=== PATIENT | female | born 1990 | race Caucasian/White ===

== ENCOUNTER 2025-07-24 09:36 | Outpatient (AMB) | payer OTHER, SELFPAY ==
[2025-07-24 09:56] VITALS: BP 133/84; PULSE 81; RESP 18; TEMP 36.2; O2SAT 98; BMI 25.4
--- NOTE | 2025-07-24 09:59 | AMB.GYNCLNOT ---
Vital Signs 07/24/25 09:56 07/24/25 10:00 Height 1.63 m Height Method Stated Weight 67.358 kg Weight Measurement Method Standing Scale BMI 25.4 BP 133/84 H 133/84 H Blood Pressure Source Automatic Cuff Blood Pressure Location Left Upper Arm Position Sitting Respiration 18 18 Pulse 81 81 Pulse Source Monitor Temp 97.2 F 97.2 F Temp Source Oral Pulse Oximetry (%) 98 98 Oxygen Delivery Method Room Air Allergies/Home Meds Allergies & Medications Allergies No Known Allergies Allergy (Verified 07/24/25 09:57) Medication Reconciliation No Known Home Medications 07/24/25 [History Confirmed 07/24/25] Intake Visit Data Collection New Patient or Established: New Patient (never been to [facility]) Reason for Visit:: [employer] REFERRAL Seen by Clinical Staff ONLY (RN/MA): No Anesthesiologists' Assistant Required: No Do You Feel Safe at Home: Yes Authorities Contacted: N/A PCP or OBGYN visit in last 3 months: Yes Hx Now: No Are you currently on any form of Control: Yes (DEPO PROVERA/ TUBAL LIGATION ) Last menstrual period: 07/22/25 Pain Present Currently: No Pain Scale Used: Solano-Clancy/Numerical Pain scale:: 0 Smoking Status Smoking Status: Never smoker Immunizations Flu Vaccine in the Last 12 Months: No Flu Vaccine Exclusion Criteria: No 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 1. Little interest or pleasure in doing things: not at all 2. Feeling down, depressed, or hopeless: not at all Total score: 0 PHQ-9 3. Trouble falling or staying asleep, or sleeping too much: Not at all 4. Feeling tired or having little energy: Not at all 5. Poor appetite or overeating: Not at all 6. Feeling bad about yourself - or that you are a failure or have let yourself or your family down: Not at all 7. Trouble concentrating on things, such as reading the newspaper or watching television: Not at all 8. Moving or speaking so slowly that other people could have noticed? - Or the opposite - being so fidgety or restless that you have been moving around a lot more than usual: not at all 9. Thoughts that you would be better off or of hurting yourself in some way: Not at all Total score: 0 If you checked off any problems, how difficult have these problems made it for you to do your work, take care of things at home, or get along with other people?: not difficult at all Source: Developed by Drs. Everett Pugh, Savannah Pickens, Jd Mendez and colleagues, with an educational concha from [employer]. Depression screen completed yes Social History Living Situation History Marital Status: Lives With: Family Housing: House Tobacco History Smoking Status: Never smoker Second Hand Smoke Exposure: No Alcohol History Alcohol Intake: Never Domestic Abuse History Do You Feel Safe at Home: Yes History of Present Illness HPI Narrative Irregular menses, pelvic pain, and fibroids Maria Teresa Anna is a 35-year-old female with a history of thyroid issues who presents with irregular menses, pelvic pain, and fibroids, referred from [facility]. The patient reports severe, constant pelvic pain accompanied by hip pain and backaches, particularly during her menstrual periods. Her symptoms began approximately two years ago but have significantly worsened over the past six months. During menstruation, she experiences heavy vaginal bleeding requiring about 4 pads per day. She also reports hot flushes and sweating. Associated symptoms include tiredness, insomnia, poor appetite, bloating, and acid reflux. These symptoms have impacted her overall functioning and quality of life. She has a known history of thyroid issues but is not currently on medication for this condition. The patient has undergone repeated ultrasounds as part of her evaluation for these ongoing symptoms. Medical History: - Thyroid issues (not currently on medication) Diagnostic Test Results and Labs: - Pelvic ultrasound (04-01-2025): Heterogeneous echogenicity uterus measuring 9.9 x 4.3 x 6.3 cm, hypoechoic fibroid 2.3 cm, isoechoic fibroid 2.3 cm, endometrial thickness 25 mm, normal cervix, no free fluid. Right ovary 2.8 x 2.3 x 2.6 cm, left ovary 3.2 x 2.6 x 3.4 cm with 1.8 cm cyst - Pelvic ultrasound (05-14-2025): Heterogeneous uterus with fibroid nodules, endometrial thickness 25 mm Exam General General Appearance: alert, in no apparent distress and healthy appearing Head Head exam: atraumatic Neck Neck exam: Present normal inspection and trachea midline Chest Chest inspection: Present normal inspection and symmetric chest wall rise External exam: Present normal external exam; Absent tenderness Neuro Neurological exam: Present oriented X3 Psych Psychiatric exam: Present normal affect and normal mood Office Procedures [facility] LOC & Office Proc's Nursing/Assessment Patient Status: Initial/New Patient OB Clinic Nursing Assessment: Medication Reconciliation, Update PMH in EMR and Vital Signs OB Clinic Coordination of Care: Consent,records obtained, informed consent, Education Simp Pt/Fam, Lab and Imaging orders, Results/Orders obtained and Staff clarify orders New Patient Charge New Patient Point Assignment: [id number] 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 Ultrasound from 05/14/2025 demonstrates a heterogeneous uterus with fibroid nodules and markedly thickened endometrial canal measuring 25 mm. Previous imaging from 04/01/2025 shows uterus measuring 9.9 x 4.3 x 6.3 cm with both hypoechoic and isoechoic fibroids measuring 2.3 cm each. Patient reports using approximately 4 pads per day during menstruation with associated backaches and hip pain. Symptoms have progressively worsened over the past six months. Plan: - Combined diagnostic hysteroscopy and laparoscopy to inspect uterus and ovaries, scrape endometrium, and assess fibroids - Post-procedure Lupron for six months to suppress estrogen - Tranexamic acid to reduce blood loss during heavy periods - NSAIDs including ibuprofen, naproxen, Aleve, and diclofenac for pain management - Submit authorization for surgery - Contact patient within 7-10 days to schedule outpatient procedure Left ovarian cyst Assessment: Imaging reveals a 1.8 cm left ovarian cyst. Left ovary measures 3.2 x 2.6 x 3.4 cm, right ovary measures 2.8 x 2.3 x 2.6 cm. No free fluid noted on ultrasound. Plan: - Assessment during planned laparoscopy Thyroid issues Assessment: Patient reports history of thyroid issues but is not currently on medication. Plan:
[2025-07-24 10:00] VITALS: BP 133/84; PULSE 81; RESP 18; TEMP 36.2; O2SAT 98
== END 2025-07-24 11:03 | disposition home or self-care (01) ==
LOC: HODSOBC 09:36
PROVIDERS: Supervising Provider Obstetrics & Gynecology; Visit Provider Obstetrics & Gynecology
DX: D25.1 Intramural leiomyoma of uterus (principal); N93.9 Abnormal uterine and vaginal bleeding, unspecified; N83.202 Unspecified ovarian cyst, left side
CPT/HCPCS: 99203; G0463